=== PATIENT | male | born 1990 | race Caucasian/White ===

== ENCOUNTER 2019-11-24 16:12 | Emergency (ER) | payer MEDICAID ==
[~2019-11-24] VITALS: Ht 175.3 cm; Wt 70.5 kg
[2019-11-24 16:50] VITALS: Ht 175.3 cm; Wt 70.5 kg
[2019-11-24 17:11] LABS: BASOPHILS 0.1 % (0-2); EOSINOPHILS 0.2 % (0-7); HEMOGLOBIN 14.3 g/dL (13.5-17.5); IMMATURE GRANULOCYTES 0.1 % (0-5); LYMPHOCYTES 7.2 % (15-50); MCH 31.6 pg (26.0-34.0); MCHC 34.9 g/dL (31.0-37.0); MCV 90.7 fL (80.0-100.0); MEAN PLATELET VOLUME 9.6 fL (7.4-10.4); MONOCYTES 4.5 % (2-11); NEUTROPHILS 87.9 % (40-80); PLATELET COUNT 405 10x3/uL (130-400); RBC 4.52 10x6/uL (4.20-6.10); RDW 11.5 % (11.5-14.5); WBC 11.8 10x3/uL (4.8-10.8)
[2019-11-24 17:14] VITALS: BP 115/67
[2019-11-24 17:22] LABS: CALC OSMOLALITY 274 mosm/kg (275-300); CALCIUM 9.3 mg/dL (8.5-10.1); CARBON DIOXIDE 29.7 mmol/L (21.0-32.0); CHLORIDE - SERUM 96 mmol/L (98-107); CREATININE - SERUM 0.9 mg/dL (0.6-1.3); GLUCOSE 146 mg/dL (74-106); POTASSIUM - SERUM 3.7 mmol/L (3.5-5.1); SODIUM 135 mmol/L (136-145); UREA NITROGEN 18 mg/dL (7-18); eGFR NON AFRICAN AMERICAN > 90 mL/min (90-120)
[2019-11-24 17:31] LABS: ALKALINE PHOSPHATASE 74 U/L (46-116); ALT (SGPT) 15 U/L (10-68); AMYLASE - SERUM 26 U/L (25-115); BILIRUBIN - TOTAL 0.59 mg/dL (0.2-1.3); PROTEIN - SERUM 8.2 g/dL (6.4-8.2)
[2019-11-24 17:32] LABS: LIPASE 37 U/L (73-393); TROPONIN-I < 0.017 ng/mL (0.000-0.060)
[2019-11-24 18:00] VITALS: BP 117/65
[2019-11-24 19:30] LABS: APPEARANCE CLEAR (CLEAR); BILIRUBIN NEGATIVE (NEGATIVE); COLOR DK YELLOW (YELLOW); GLUCOSE NEGATIVE (NEGATIVE); KETONE MODERATE mg/dL (NEGATIVE); NITRITE NEGATIVE (NEGATIVE); PROTEIN 3+ mg/dL (NEGATIVE); UROBILINOGEN NORMAL (NORMAL)
[2019-11-24 19:33] LABS: RED CELLS - URINE NONE SEEN /hpf (0-5); WHITE CELLS - URINE 0-5 /hpf (NEGATIVE)
[2019-11-24 19:34] LABS: BACTERIA MODERATE /hpf (NEGATIVE); EPITHELIAL CELLS 0-5 /hpf (0-5); MUCUS >1+ /lpf (NONE SEEN)
[2019-11-24 20:26] VITALS: BP 129/75
[2019-11-24 21:30] VITALS: BP 117/56
[2019-11-24 22:32] VITALS: BP 112/75
--- NOTE | 2019-11-24 22:37 | NUR ---
PT REFUSED TO BE ADMITTED AT THIS TIME. PT WILL SEE PCP IN AM. PT FAMILY AT BEDSIDE TO TRANSPORT PT.
[2019-11-25 05:09] VITALS: BP 142/85
== END 2019-11-24 22:34 | disposition other institution (70) ==
LOC: D.ER 16:12 → D.M3 21:11
PROVIDERS: Emergency Medicine
DX: R10.9 Unspecified abdominal pain (principal); K52.9 Noninfective gastroenteritis and colitis, unspecified; R11.2 Nausea with vomiting, unspecified; K65.9 Peritonitis, unspecified